=== PATIENT | female | born 1990 | race Caucasian/White ===

== ENCOUNTER 2017-11-04 16:43 | Emergency (ER) | payer MEDICAID ==
[2017-11-04 16:43] VITALS: O2SAT 98
[2017-11-04 17:02] VITALS: BP 125/88; PULSE 89; RESP 20; TEMP 97.5
== END 2017-11-04 17:14 | disposition home or self-care (01) | DRG 605 ==
LOC: ED 16:43
DX: S90.31XA Contusion of right foot, initial encounter (principal); I10 Essential (primary) hypertension
CPT/HCPCS: 99282

== ENCOUNTER 2018-03-05 02:04 | Emergency (ER) | payer MEDICAID ==
[2018-03-05 02:05] VITALS: O2SAT 98
[2018-03-05 02:09] VITALS: TEMP 97.1
[2018-03-05] MEDS ORDERED: SODIUM CHLORIDE 0.9% 1000ML 1,000 ML IV ONE (02:27)
[2018-03-05 02:51] LABS: BASOPHILS % (AUTO) 1 % (0-3); EOSINOPHILS % (AUTO) 2 % (0-9); HEMATOCRIT 46 % (35-47); HEMOGLOBIN 15.6 gm/dl (12.0-15.5); LYMPHOCYTES % (AUTO) 44.6 % (10-50); MEAN CORPUSCULAR HEMOGLOBIN 30.9 pg (27.0-32.0); MEAN CORPUSCULAR HGB CONC 33.9 gm/dl (32.0-36.0); MEAN CORPUSCULAR VOLUME 91 fL (81-99); MONOCYTES % (AUTO) 9.1 % (0-12); NEUTROPHILS % (AUTO) 42.6 % (37-80)
[2018-03-05 02:57] LABS: APPEARANCE,URINE Clear; BILIRUBIN,URINE NEGATIVE (NEGATIVE); COLOR,URINE Yellow; GLUCOSE, URINE (UA) NEGATIVE (NEGATIVE); KETONES,URINE NEGATIVE (NEGATIVE); LEUKOCYTE ESTERASE ,URINE TRACE (NEGATIVE); NITRATE,URINE NEGATIVE (NEGATIVE); OCCULT BLOOD,URINE NEGATIVE (NEG-TRACE); PH,URINE 5.5; UROBILINOGEN,URINE 0.2 (0.2-1.0 EU)
[2018-03-05 03:02] LABS: ALBUMIN 4.2 gm/dl (3.4-5.0); BILIRUBIN,TOTAL 0.6 mg/dl (0.2-1.0); CALCIUM 9.1 mg/dl (8.5-10.1); CARBON DIOXIDE 23.9 mEq/L (21-32); CREATININE 0.69 mg/dl (0.60-1.00); POTASSIUM 3.5 mMol/L (3.5-5.1); TOTAL PROTEIN 7.7 gm/dl (6.4-8.2)
[2018-03-05] MEDS ORDERED: KETOROLAC TROMETHAMINE 30 MG/ML SOL IV ONE (03:02)
[2018-03-05] MEDS ORDERED: KETOROLAC TROMETHAMINE 30 MG/ML SOL ONE (03:03)
[2018-03-05 03:19] LABS: BACTERIA 1+ (< 1+); CRYSTALS NEGATIVE (0-3 AVE/HPF)
[2018-03-05 03:24] VITALS: RESP 16
[2018-03-05 04:44] VITALS: BP 142/78; PULSE 88
== END 2018-03-05 04:51 | disposition home or self-care (01) | DRG 392 ==
LOC: ED 02:04
DX: R14.1 Gas pain (principal)
CPT/HCPCS: 74019; 80053; 81001; 84703; 85025; 87088; 96365; 96366; 96374; 99283; 99284; J1885

== ENCOUNTER 2018-03-23 14:04 | Emergency (ER) | payer MEDICAID ==
[2018-03-23 15:30] VITALS: BP 144/93; PULSE 99; RESP 20; TEMP 97.8; O2SAT 96
[2018-03-23 15:46] LABS: BASOPHILS % (AUTO) 1 % (0-3); EOSINOPHILS % (AUTO) 1 % (0-9); HEMATOCRIT 42 % (35-47); HEMOGLOBIN 14.3 gm/dl (12.0-15.5); LYMPHOCYTES % (AUTO) 31.3 % (10-50); MEAN CORPUSCULAR HEMOGLOBIN 31.5 pg (27.0-32.0); MEAN CORPUSCULAR HGB CONC 33.9 gm/dl (32.0-36.0); MEAN CORPUSCULAR VOLUME 93 fL (81-99); MONOCYTES % (AUTO) 10.2 % (0-12); NEUTROPHILS % (AUTO) 56.3 % (37-80)
[2018-03-23 16:05] LABS: ALBUMIN 3.6 gm/dl (3.4-5.0); BILIRUBIN,DIRECT 0.1 mg/dl (0.0-0.2); BILIRUBIN,TOTAL 0.3 mg/dl (0.2-1.0); CALCIUM 8.5 mg/dl (8.5-10.1); CARBON DIOXIDE 28.6 mEq/L (21-32); CREATININE 0.68 mg/dl (0.60-1.00); POTASSIUM 3.2 mMol/L (3.5-5.1); THYROID STIMULATING HORMONE 0.815 uIU/ml (0.358-3.740); TOTAL PROTEIN 6.6 gm/dl (6.4-8.2)
[2018-03-23 16:10] LABS: ALCOHOL 0.095 gm/dl (0.000-0.08)
[2018-03-23 16:22] LABS: APPEARANCE,URINE Slightly Cloudy; BILIRUBIN,URINE NEGATIVE (NEGATIVE); COLOR,URINE Dark yellow; GLUCOSE, URINE (UA) NEGATIVE (NEGATIVE); KETONES,URINE NEGATIVE (NEGATIVE); LEUKOCYTE ESTERASE ,URINE NEGATIVE (NEGATIVE); NITRATE,URINE NEGATIVE (NEGATIVE); OCCULT BLOOD,URINE NEGATIVE (NEG-TRACE)
[2018-03-23 16:37] LABS: AMPHETAMINES NEGATIVE (NEGATIVE); BACTERIA 1+ (< 1+); BARBITUATES NEGATIVE (NEGATIVE); BENZODIAZEPINES NEGATIVE (NEGATIVE); CANNABINOL(THC) NEGATIVE (NEGATIVE); COCAINE(COC) NEGATIVE (NEGATIVE); CRYSTALS NEGATIVE (0-3 AVE/HPF); METHADONE NEGATIVE (NEGATIVE); METHAMPHETAMINES NEGATIVE (NEGATIVE); OPIATES(OPI) NEGATIVE (NEGATIVE); OXYCODONE(OXY) NEGATIVE (NEGATIVE); PROPOXYPHENE(PPX) NEGATIVE (NEGATIVE); RBC,URINE 0-2 (0-3AV/HPF); TRICYCLIC ANTIDEPRESSANTS NEGATIVE (NEGATIVE); WBC,URINE 0-4 (0-5AV/HPF)
[2018-03-23] MEDS ORDERED: POTASSIUM CHLORIDE 10 MEQ TER PO ONE (16:40)
[2018-03-23] MEDS ORDERED: POTASSIUM CHLORIDE 10 MEQ TER ONE (17:17)
== END 2018-03-23 17:25 | disposition home or self-care (01) | DRG 897 ==
LOC: ED 14:04
DX: F10.10 Alcohol abuse, uncomplicated (principal); E87.6 Hypokalemia
CPT/HCPCS: 36415; 80048; 80076; 80305; 80307; 81001; 83735; 84443; 84703; 85025; 99282; 99283; A9270-GY

== ENCOUNTER 2018-03-24 00:02 | Emergency (ER) | payer MEDICAID ==
[2018-03-24 01:37] LABS: AMPHETAMINES NEGATIVE (NEGATIVE); BARBITUATES NEGATIVE (NEGATIVE); BENZODIAZEPINES NEGATIVE (NEGATIVE); CANNABINOL(THC) NEGATIVE (NEGATIVE); COCAINE(COC) NEGATIVE (NEGATIVE); METHADONE NEGATIVE (NEGATIVE); METHAMPHETAMINES NEGATIVE (NEGATIVE); OPIATES(OPI) NEGATIVE (NEGATIVE); OXYCODONE(OXY) NEGATIVE (NEGATIVE); PROPOXYPHENE(PPX) NEGATIVE (NEGATIVE); TRICYCLIC ANTIDEPRESSANTS NEGATIVE (NEGATIVE)
[2018-03-24] MEDS ORDERED: ACETAMINOPHEN 325 MG PO ONE (01:52)
[2018-03-24] MEDS ORDERED: ACETAMINOPHEN 325 MG ONE (01:53)
[2018-03-24] MEDS ORDERED: ONDANSETRON 4 MG ODT BU ONE (08:19)
[2018-03-24] MEDS ORDERED: ONDANSETRON 4 MG ODT ONE (08:20)
[2018-03-24 09:24] LABS: CALCIUM 8.7 mg/dl (8.5-10.1); CARBON DIOXIDE 23.7 mEq/L (21-32); CREATININE 0.7 mg/dl (0.60-1.00); POTASSIUM 3.1 mMol/L (3.5-5.1)
[2018-03-24] MEDS ORDERED: POTASSIUM CHLORIDE 10 MEQ TER PO ONE (09:50)
[2018-03-24] MEDS ORDERED: POTASSIUM CHLORIDE 10 MEQ TER ONE (09:51)
[2018-03-24] MEDS ORDERED: BACITRACIN 500 U/GM OIN TOP ONE ×2 (09:55)
[2018-03-24 09:59] VITALS: TEMP 97.8
[2018-03-24 10:06] LABS: ACETAMINOPHEN < 2 ug/ml (10-30); SALICYLATE 2.9 mg/dl (2.8-30.0)
[2018-03-24 12:12] VITALS: RESP 20
[2018-03-24 13:38] VITALS: BP 136/93; PULSE 89; O2SAT 98
== END 2018-03-24 13:25 | disposition short-term general hospital (02) | DRG 897 ==
LOC: ED 00:02
DX: F10.229 Alcohol dependence with intoxication, unspecified (principal); R45.851 Suicidal ideations
CPT/HCPCS: 36415; 80048; 80305; 80307; 99283; 99285; A9270-GY

== ENCOUNTER 2018-04-06 20:40 | Emergency (ER) | payer MEDICAID ==
[2018-04-06 21:17] LABS: BASOPHILS % (AUTO) 1 % (0-3); EOSINOPHILS % (AUTO) 2 % (0-9); HEMATOCRIT 43 % (35-47); HEMOGLOBIN 14.6 gm/dl (12.0-15.5); LYMPHOCYTES % (AUTO) 31.3 % (10-50); MEAN CORPUSCULAR HEMOGLOBIN 31.1 pg (27.0-32.0); MEAN CORPUSCULAR HGB CONC 33.8 gm/dl (32.0-36.0); MEAN CORPUSCULAR VOLUME 92 fL (81-99); NEUTROPHILS % (AUTO) 57.5 % (37-80)
[2018-04-06 21:41] LABS: ALBUMIN 4.2 gm/dl (3.4-5.0); ALKALINE PHOSPHATASE 75 IU/L (46-116); ALT 32 IU/L (14-63); AST 17 IU/L (15-37); BILIRUBIN,TOTAL 0.3 mg/dl (0.2-1.0); BLOOD UREA NITROGEN 12 mg/dl (7-18); CALCIUM 8.7 mg/dl (8.5-10.1); CARBON DIOXIDE 28.9 mEq/L (21-32); CHLORIDE 102 mMol/L (98-107); CREATININE 0.72 mg/dl (0.60-1.00); GLUCOSE 102 mg/dl (74-106); POTASSIUM 3.2 mMol/L (3.5-5.1); SALICYLATE 4.1 mg/dl (2.8-30.0); SODIUM 141 mMol/L (136-145); TOTAL PROTEIN 7.5 gm/dl (6.4-8.2)
[2018-04-06 21:43] LABS: ALCOHOL 0.124 gm/dl (0.000-0.08)
[2018-04-06 21:44] LABS: ACETAMINOPHEN < 2 ug/ml (10-30)
[2018-04-06 22:07] LABS: APPEARANCE,URINE SL CLOUDY; COLOR,URINE YELLOW
[2018-04-06 22:08] LABS: GLUCOSE, URINE (UA) NEGATIVE (NEGATIVE); KETONES,URINE NEGATIVE (NEGATIVE); NITRATE,URINE NEGATIVE (NEGATIVE); OCCULT BLOOD,URINE 1+ (NEG-TRACE); PH,URINE 5.5
[2018-04-06 22:09] LABS: BILIRUBIN,URINE NEGATIVE (NEGATIVE); LEUKOCYTE ESTERASE ,URINE NEGATIVE (NEGATIVE); UROBILINOGEN,URINE NORMAL (0.2-1.0 EU)
[2018-04-06 22:17] LABS: BACTERIA NEGATIVE (< 1+); CRYSTALS NEGATIVE (0-3 AVE/HPF)
[2018-04-06 22:18] LABS: AMPHETAMINES NEGATIVE (NEGATIVE); BARBITUATES NEGATIVE (NEGATIVE); BENZODIAZEPINES POSITIVE (NEGATIVE); CANNABINOL(THC) NEGATIVE (NEGATIVE); COCAINE(COC) NEGATIVE (NEGATIVE); METHADONE NEGATIVE (NEGATIVE); METHAMPHETAMINES NEGATIVE (NEGATIVE); OPIATES(OPI) POSITIVE (NEGATIVE); OXYCODONE(OXY) NEGATIVE (NEGATIVE); PROPOXYPHENE(PPX) NEGATIVE (NEGATIVE); TRICYCLIC ANTIDEPRESSANTS POSITIVE (NEGATIVE)
[2018-04-06] MEDS ORDERED: POTASSIUM CHLORIDE 10 MEQ TER PO ONE (23:10)
[2018-04-06] MEDS ORDERED: POTASSIUM CHLORIDE 10 MEQ TER ONE (23:33)
[2018-04-07 00:12] VITALS: BP 122/86; PULSE 92; RESP 14; O2SAT 96
== END 2018-04-06 23:40 | DRG 885 ==
LOC: ED 20:40
DX: F33.2 Major depressive disorder, recurrent severe without psychotic features (principal); F10.10 Alcohol abuse, uncomplicated; Y90.6 Blood alcohol level of 120-199 mg/100 ml
CPT/HCPCS: 36415; 80053; 80305; 80307; 81001; 84443; 84703; 85025; 99283; 99285; A9270-GY

== ENCOUNTER 2018-05-09 04:12 | Emergency (ER) | payer MEDICAID ==
[2018-05-09 04:40] VITALS: BP 150/119; PULSE 123; RESP 18; TEMP 96.9; O2SAT 99
== END 2018-05-09 05:37 | disposition home or self-care (01) | DRG 605 ==
LOC: ED 04:12
DX: S50.11XA Contusion of right forearm, initial encounter (principal)
CPT/HCPCS: 73090; 99282